=== PATIENT | male | born 1970 | race African-American/Black ===

== ENCOUNTER 2025-08-06 09:15 | Outpatient (CLI) | payer OTHER, SELFPAY ==
--- NOTE | ~2025-08-06 | US_ITS ---
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 Findings: Right Testicle:Right testicle 3.5 x 2.6 x 2.7 cm, normal parenchyma, normal flow, probable testicular appendix noted measuring 3 x 5 mm. Right Epidiymis:The right epididymis is enlarged with heterogeneous appearance and slightly increased flow. Left Testicle: Left testicle 4.6 x 2.8 x 2.9 cm, normal parenchyma, normal flow. Left Epidiymis: Unremarkable. Normal flow. Hydrocele: Moderate to severe simple appearing right hydrocele. Moderate simple appearing left hydrocele. . Varicocele: None Scrotum: Unremarkable. No skin thickening. Impression: Probable right-sided epididymitis. Bilateral hydroceles. Follow-up recommended to assess resolution Reviewed, dictated and finalized at location P. 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 Bilateral hydroceles. Follow-up recommended to assess resolution
== END 2025-08-06 09:16 | disposition home or self-care (01) ==
PROVIDERS: PCP Internal Medicine; Visit Provider Internal Medicine
DX: N50.89 Other specified disorders of the male genital organs (principal)
CPT/HCPCS: 76870; 93976